=== PATIENT | male | born 1960 | race African-American/Black ===

== ENCOUNTER 2017-03-24 10:51 | Emergency (ER) | payer MEDICARE, MEDICAID ==
[2011-02-28 07:15] VITALS: BMI 36.0
== END 2017-03-24 11:23 | disposition home or self-care (01) ==
LOC: D.ER 10:51
DX: A28.1 Cat-scratch disease (principal); F17.200 Nicotine dependence, unspecified, uncomplicated

== ENCOUNTER 2017-04-07 09:15 | Emergency (ER) | payer MEDICARE, MEDICAID ==
[2011-02-28 07:15] VITALS: BMI 36.0
[2017-04-16 16:07] LABS: AEROBE ID Final report (())
== END 2017-04-07 11:31 | disposition home or self-care (01) ==
LOC: D.ER 09:15
PROVIDERS: Emergency Medicine
DX: S60.811D Abrasion of right wrist, subsequent encounter (principal); W55.03XD Scratched by cat, subsequent encounter; A28.1 Cat-scratch disease; F17.200 Nicotine dependence, unspecified, uncomplicated